=== PATIENT | female | born 1995 | race Caucasian/White ===

== ENCOUNTER 2025-04-18 14:16 | Outpatient (CLI) | payer OTHER, SELFPAY ==
--- NOTE | ~2025-04-18 | US_ITS ---
EXAM: Focused ultrasound examination of the soft tissues of the left neck HISTORY: 4-6 weeks enlarged jugulodigastric lymph node TECHNIQUE: Sonographic evaluation of the soft tissues of the left neck were performed assessing patty ronel appearance and color Doppler flow. COMPARISON: None FINDINGS: Within the area of clinical concern are multiple reniform shaped foci of decreased echogenicity, cons istent with morphologically benign-appearing lymph nodes. The largest lymph node measuring 5.4 mm in short axis dimension. Sonographic evaluation of the remainder of the area of palpable concern demonstrates benign fibrofatt y and fibromuscular elements without a cystic or solid lesion of concern. IMPRESSION: Findings within the left neck consistent with nonpathologically enlarged and morphologically benign l ymph nodes, as detailed above Reviewed, dictated and finalized at location A. IMPRESSION: Findings within the left neck consistent with nonpathologically enlarged and mo rphologically benign lymph nodes, as detailed above
== END 2025-04-18 14:17 | disposition home or self-care (01) ==
LOC: GOSHIMG 14:17
DX: R59.0 Localized enlarged lymph nodes (principal)
CPT/HCPCS: 76536